=== PATIENT | female | born 1980 | race Hispanic/Latino ===

== ENCOUNTER 2018-06-13 14:03 | Outpatient (CLI) | payer OTHER ==
--- NOTE | 2018-06-13 16:01 | ULT ---
OB ULTRASOUND: 06/13/18 HISTORY: Positive , evaluate anatomy. COMPARISON: None available. FINDINGS: There is a single intrauterine gestation in breech presentation. Cardiac doppler demonstrates h earts with a heart rate of 134 beats per minute. The placenta is located anteriorly without evidence of placenta previa. There is a hypoechoic structu re seen anterior to the level of the placenta which does not appear to be in a retroplacental locatio n and is thought to be within the region of the myometrium and likely represents uterine fibroid whic h measures 2.9 cm in maximal dimensions. There is a normal amount of amniotic fluid with an amniotic fluid index of 13.67 cm. The cervical length measures approximately 4.3 cm based on transabdominal im aging. MEASUREMENTS: Biparietal diameter 4.78 cm 20 weeks, 4 days Head circumference 18.04 cm 20 weeks, 4 days Abdominal circumference 17.09 cm 22 weeks, 1 day Femur length 2.97 cm 19 weeks, 2 days The estimated gestational age by ultrasound 20 weeks and 5 days with an ELVIN on 10/26/18. Gestational a ge by the last menstrual period is 21 weeks and 2 days. The estimated weight by ultrasound is 372 grams (13 oz). This represents the 18th percentile fo r weight. The cerebellum, visualized portions of the spine, four chambered heart, stomach, bilateral kidn eys, and urinary bladder demonstrate a normal sonographic appearance. There is suggestion of a three vessel cord. The cord insertion is not well evaluated on this exam, but in the region of the cord ins ertion, no definite abnormality is seen. No anomalies are appreciated. IMPRESSION: 1. Single intrauterine gestation in breech presentation with heart tones documented. Estim ated gestational age by ultrasound is 20 weeks and 5 days with an ELVIN on 10/26/18. 2. Estimated weight is 372 grams (13 oz). 3. Hypoechoic mass measuring 2.9 cm anterior to the placenta which appears to be within the myom etrium as opposed to a retroplacental location and probably represents a small uterine fibroid. POS: JENNIFER
== END 2018-06-13 14:04 | disposition home or self-care (01) ==
LOC: BICULT 14:03
PROVIDERS: ATTEND Family Medicine
DX: O09.522 Supervision of elderly multigravida, second trimester (principal); O32.1XX0 Maternal care for breech presentation, not applicable or unspecified; Z3A.20 20 weeks gestation of pregnancy
CPT/HCPCS: 76805

== ENCOUNTER 2018-09-02 22:01 | Day surgery (SDC) | payer OTHER ==
[2018-09-02 22:47] VITALS: BP 111/62; TEMP 97.9
--- NOTE | 2018-09-02 23:06 | PDOC.LDHP ---
Labor and Delivery H&P Chief complaint: decreased movement HPI: 38 y/o at 33w1d, patient of Dr. Mcintosh, presents with decreased FM today and low back pain. Pain centrally located on either side of the spine, unable to get comfortable. Denies VB, LOF, ctx, or other concerns. ROS neg for HEENT, CV, pulm, GI, , neuro, psych, skin, musculoskeletal, or constitutional symptoms other than mentioned above. 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 Back pain consistent with musculoskeletal discomforts. - Plan -: D/c home with precuations. Advised to keep all appointments. Comfort measures discussed.
== END 2018-09-02 23:07 | disposition home or self-care (01) ==
LOC: L&D/OP 22:01
PROVIDERS: ATTEND Family Medicine
DX: O36.8130 Decreased fetal movements, third trimester, not applicable or unspecified (principal); Z3A.33 33 weeks gestation of pregnancy
CPT/HCPCS: 99282

== ENCOUNTER 2018-10-18 15:36 | Inpatient (IN) | payer MEDICAID, OTHER, SELFPAY ==
[~2018-10-18 15:36] MED LIST: Ketorolac Tromethamine 30 MG/ML VIAL ONE; Ondansetron PF 4 MG/2 ML Vial ONE
[2018-10-18] MEDS: Lactated Ringer's 1,000 ML IV SCH ×2 (16:15→21:53)
--- NOTE | 2018-10-18 16:25 | PDOC.LDHP ---
Labor and Delivery H&P Allergies/Adverse Reactions: Allergies Allergy/AdvReac Type Severity Reaction Status Date / Time No Known Allergies Allergy Verified 10/18/18 16:06 - Plan -: PCP: Arnaldo HPI: This is a 38 yo at 39.0 wks presenting for contractions. She states she had some contractions yesterday that were 10-15 minutes apart. She states she has been feeling contractions every 10 minutes apart for the last 3 hours which prompted her to come in today. She denies being checked in the office. States she had discussed with Dr. Mcintosh and elected for repeat c/s. She affirms movement, denies ROM, denies bleeding/discharge. Denies HERRERA, visual changes, SOB, or swelling. History: OB hx: , 3 SVDs then an emergent c/s 2/2 baby head turned to side at time of delivery PMH: neg PSH: c/s x1 Meds: PNV, iron Soc Hx: denies smoking, alcohol, drugs Fam Hx: denies downs, congenital defects Blood type: O+ Abs screen neg Hep b neg RPR/HIV neg Rubella immune GBS: neg 1 hr GCT: 110 REVIEW OF SYSTEMS: Gen: no fever, chills, or sweats Neuro: no numbness/tingling, no weakness, denies headache Eyes: no visual changes ENT: no hearing changes, no sore throat, no runny nose Resp: no cough, no SOB, no wheeze Card: denies chest pain, no palpitations GI: no N/V/D, no abdominal pain, contractions : no dysuria, no hematuria MSK: no myalgias, no joint pain/stiffness Heme: no easy bruising/bleeding Skin: no rash, no erythema PHYSICAL EXAMINATION: General: NAD, alert and oriented x3 HEENT: PERRLA, EOMI, normal sclera, oropharynx without erythema or exudate Neck: Supple. Full ROM. Heart/Cardiovascular System: RRR, Cap refill < 3 seconds, no rub, no murmur Lungs/Respiratory System: clear to auscultation bilaterally. No increased work of breathing. Room air. Abdomen/Gastro-Intestinal System: no abdominal tenderness, normal bowel sounds, Gravid Extremities: Warm extremities. No cyanosis or edema. Neuro: No gross deficits appreciated. CN 2-12 grossly intact Psychiatry: Awake, Alert and cooperative with exam Skin: No lesions, rashes, or ulcers Musculoskeletal: Full ROM A/P: This is a 38 yo at 39.0 wks presenting for contractions # Term - Scheduled for repeat c/s in 3 days - SVE: 07/09/- - Gave 1 L of fluids, patient with persist contractions on monitor - Now feeling contractions q5 min, was feeling contractions q10 on presentation - Will proceed with c/s, discussed risk/benefits with patient and she agrees with plan
[2018-10-18 16:54] LABS: Hemoglobin 12.9 g/dL (12.0-16.0); Mean Corpuscular HGB CONC 34.8 g/dL (32.0-36.0); Mean Corpuscular Hemoglobin 30.9 pg (27.0-31.0); Mean Corpuscular Volume 88.8 fL (78.0-98.0); Mean Platelet Volume 8.9 fL (7.4-10.4); Platelet Count 144 thou/uL (130-400); Red Blood Cell (RBC) Count 4.16 mill/uL (4.20-5.40); White Blood Cell (WBC) Count 10.5 thou/uL (4.8-10.8)
[2018-10-18 16:58] VITALS: BMI 28.9
[2018-10-18] MEDS ORDERED: Promethazine HCl 25 MG/ML VIAL IM PRN ×3 (17:27→20:47)
[2018-10-18] MEDS ORDERED: Ondansetron PF 4 MG/2 ML Vial IVP PRN ×3 (17:27→20:47)
[2018-10-18] MEDS ORDERED: Lactated Ringer's 1,000 ML IV SCH (17:30)
[2018-10-18] MEDS ORDERED: CEFAZOLIN 2 GM in Premix Bag 1 BAG IVPB SCH (17:30)
[2018-10-18] MEDS ORDERED: Bicitra 30 ML UDCUP PO SCH (17:30)
[2018-10-18 17:32] LABS: HBSAg Index 0.36 S/CO (0-0.99); Hep B Surf Ag Non-Reactive S/CO (NonReactive); Syphilis Antibody Nonreactive (Nonreactive); Syphilis Antibody Index 0.08 S/CO (<1.00 Non-Reactive)
[2018-10-18] MEDS ORDERED: Ketorolac Tromethamine 30 MG/ML VIAL ONE (17:53)
[2018-10-18] MEDS ORDERED: PHENYLEPHRINE-NS 100 MCG/ML 10 ML SYRINGE ONE (17:53)
[2018-10-18] MEDS ORDERED: MORPHINE 5 MG/10 ML PF VIAL ONE (17:53)
[2018-10-18] MEDS ORDERED: Oxytocin 10 UNITS/ML VIAL ONE (17:53)
[2018-10-18] MEDS ORDERED: Ondansetron PF 4 MG/2 ML Vial ONE (17:53)
[2018-10-18] MEDS ORDERED: ePHEDrine/0.9% NaCl/PF SYRINGE 50 mg/10 ml ONE (17:54)
[2018-10-18] MEDS ORDERED: HYDROmorphone 2 MG/ML VIAL SLOW IVP PRN (18:38)
[2018-10-18] MEDS ORDERED: Ondansetron HCl/PF 4 MG/2 ML Vial IVP PRN (18:38)
[2018-10-18] MEDS ORDERED: Meperidine HCl/PF 25 MG/ML VIAL SLOW IVP PRN (18:38)
[2018-10-18] MEDS ORDERED: L&D-Morphine 4 MG/ML VIAL SLOW IVP PRN (18:38)
[2018-10-18] MEDS ORDERED: Eucerin (Mineral Oil/Petrolatum,White) 30 gm Jar TOP PRN (18:38)
[2018-10-18] MEDS ORDERED: Naloxone HCl 0.4 mg/ml Vial IV PRN (18:38)
[2018-10-18] MEDS ORDERED: Promethazine HCl 25 MG SUPP PR PRN (18:38)
[2018-10-18] MEDS ORDERED: Naloxone HCl 0.4 mg/ml Vial IVP PRN ×2 (18:38)
[2018-10-18] MEDS ORDERED: diphenhydrAMINE 50 MG/ML VIAL IVP PRN (18:38)
[2018-10-18] MEDS ORDERED: Communication Order-Pharmacy FS SCH (18:45)
[2018-10-18] MEDS ORDERED: Ketorolac Tromethamine 30 MG/ML VIAL IVP SCH (18:45)
--- NOTE | 2018-10-18 19:29 | PDOC.OPDEL ---
OB Operative/Delivery Note - Additional Findings/Plan Compilations/Other Findings: Procedure Note Date of Procedure: 10/18/18 Resident Surgeon: Dr. Jose Luis Ramirez Attending Surgeon: Dr. Aric Mcintosh Procedure: Repeat low transverse caesarean section Preoperative Diagnosis: 1)Term intrauterine 2)Previous Postoperative Diagnosis: 1)same as above Indications: The patient is a 38 year old G5,P4 female at 39 weeks gestation who presents for a repeat scheduled . Procedure in Detail: After risks, benefits, and alternatives were explained to the patient, she gave informed consent. Pre-operative antibiotics included Cefazolin 2 gram IV. The patient was taken to the operating room and spinal anesthesia was initiated. She was placed in the supine position with a left tilt and prepped and draped in usual sterile fashion. A Pfannenstiel incision was made with a scalpel and carried down to the level of the fascia which was sharply nicked. The fascial cut was extended bilaterally with Menendez sissors. The inferior and superior edges of the cut fascial edges were elevated with Jose clamps and the underlying rectus muscles were sharply and bluntly dissected free. The recti were divided digitally and retracted manually. The peritoneum was entered bluntly and retracted manually. Bladder blade was placed. Bladder flap was created with Metzenbaum scissors. A low transverse score was made with the scalpel and the uterus was entered in the midline with the scalpel. Clear fluid was seen. The hysterotomy was extended manually. The was noted to be vertex and was easily delivered by fundal pressure. Mouth and nares were bulb suctioned. Cord clamped and cut and grossly normal male/female was handed to waiting nurse. Cord blood was obtained. Placenta was manually extracted, found to be intact with 3 vessel cord and discarded. The uterus was externalized and the endometrium was curetted with a dry lap. The bladder blade was replaced and the uterus was closed with a running locking 0-Vicryl. 3 figure of eight knots of 0-Vicryl were then placed. Following this hemostasis was noted. The abdomen was irrigated with saline and suctioned free of clots. The uterus was internalized and the hysterotomy was again noted to be hemostatic. The peritoneum was closed with 3-0 chromic in a running non-locking fashion. The fascia was closed with a running non-locking 0-PDS suture. The subcutaneous tissue was irrigated and there were no bleeders. The skin was approximated with lesley and a pressure dressing was placed. All counts were correct. The patient tolerated the procedure well and was taken to the recovery room in stable condition. QBL: 540 ml Complications: None Specimens: Cord blood sent to lab for blood type Findings: Grossly normal male Grossly normal placenta with 3 vessel cord discarded. Drains: Toney to gravity draining clear urine
[2018-10-18] MEDS ORDERED: NS / Oxytocin 40 units/1000ml 0 ML ONE (19:33)
[2018-10-18] MEDS ORDERED: NS / Oxytocin 40 units/1000ml 1,000 ML ONE (19:33)
[2018-10-18] MEDS ORDERED: Lanolin Ointment 7 GM TUBE TOP PRN (20:47)
[2018-10-18] MEDS ORDERED: NS / Oxytocin 40 units/1000ml 1,000 ML IV SCH (20:47)
[2018-10-18] MEDS ORDERED: Bisacodyl 10 MG SUPP PR PRN (20:47)
[2018-10-18] MEDS ORDERED: diphenhydrAMINE 25 MG CAP PO PRN (20:47)
[2018-10-18] MEDS: Ketorolac Tromethamine 30 MG/ML VIAL IVP PRN (21:53)
[2018-10-18] MEDS: Docusate Calcium (SURFAK) 240 MG CAP PO SCH (22:34)
[2018-10-19] MEDS: Ketorolac Tromethamine 30 MG/ML VIAL IVP PRN (04:46)
[2018-10-19 06:43] LABS: Hemoglobin 11.2 g/dL (12.0-16.0); Mean Corpuscular HGB CONC 33.7 g/dL (32.0-36.0); Mean Corpuscular Hemoglobin 30.2 pg (27.0-31.0); Mean Corpuscular Volume 89.9 fL (78.0-98.0); Mean Platelet Volume 8.8 fL (7.4-10.4); Platelet Count 130 thou/uL (130-400); White Blood Cell (WBC) Count 11.6 thou/uL (4.8-10.8)
[2018-10-19] MEDS ORDERED: Meperidine HCl/PF 25 MG/ML VIAL IM PRN (06:45)
[2018-10-19] MEDS: Ferrous Sulfate 325 MG TAB PO SCH ×2 (07:53→17:04)
[2018-10-19] MEDS: Docusate Calcium (SURFAK) 240 MG CAP PO SCH ×2 (10:05→21:05)
[2018-10-19] MEDS: Prenatal Vitamin 1 TAB PO SCH (10:05)
[2018-10-19] MEDS: HYDROcodone/Acetaminophen 5/325 mg Tablet PO PRN ×3 (10:06→19:13)
[2018-10-19] MEDS: Simethicone Chewable 80 MG TAB PO PRN (19:13)
[2018-10-19] MEDS: Ibuprofen 800 MG TAB PO SCH (21:05)
[2018-10-20] MEDS: HYDROcodone/Acetaminophen 5/325 mg Tablet PO PRN ×6 (00:28→21:34)
[2018-10-20] MEDS: Ibuprofen 800 MG TAB PO SCH ×3 (04:58→21:34)
[2018-10-20] MEDS: Ferrous Sulfate 325 MG TAB PO SCH ×2 (07:34→13:53)
[2018-10-20] MEDS: Simethicone Chewable 80 MG TAB PO PRN (08:50)
[2018-10-20] MEDS: Prenatal Vitamin 1 TAB PO SCH (08:50)
[2018-10-20] MEDS: Docusate Calcium (SURFAK) 240 MG CAP PO SCH ×2 (08:50→21:34)
[2018-10-21] MEDS: HYDROcodone/Acetaminophen 5/325 mg Tablet PO PRN ×2 (03:38→08:19)
[2018-10-21] MEDS: Ibuprofen 800 MG TAB PO SCH (06:26)
[2018-10-21 08:13] VITALS: BP 121/61; TEMP 98.3
[2018-10-21] MEDS: Prenatal Vitamin 1 TAB PO SCH (08:14)
[2018-10-21] MEDS: Ferrous Sulfate 325 MG TAB PO SCH (08:14)
[2018-10-21] MEDS: Docusate Calcium (SURFAK) 240 MG CAP PO SCH (08:14)
[2018-10-21] MEDS ORDERED: Milk Of Magnesia 30 ML UDCUP PO SCH ×2 (08:30→21:00)
== END 2018-10-21 12:15 | disposition home or self-care (01) | DRG 788 ==
LOC: L&D/OP 15:36 → L&D 19:05 → 3SW 21:35
PROVIDERS: ADMIT Family Medicine; ATTEND Family Medicine
PROC: 10D00Z1 Extraction of Products of Conception, Low, Open Approach (ICD-10-PCS; principal; 2018-10-18)
DX: O34.211 Maternal care for low transverse scar from previous cesarean delivery (principal); Z3A.39 39 weeks gestation of pregnancy; Z37.0 Single live birth
CPT/HCPCS: 36415; 51702; 85027; 86780; 86850; 86900; 86901; 87340; 99285; J0690; J1885; J2270; J2405; J2590

== ENCOUNTER 2021-11-29 12:32 | Outpatient (CLI) | payer OTHER | END 2021-11-29 12:33 | disposition home or self-care (01) | LOC: BICRAD 12:32 | PROVIDERS: ATTEND Nurse Practitioner Family | DX: R30.0 Dysuria (principal) | CPT/HCPCS: 74018 ==